=== PATIENT | male | born 1965 | race Caucasian/White ===

== ENCOUNTER 2023-08-10 15:05 | Emergency (ER) | payer SELFPAY ==
[2023-08-10 15:30] VITALS: TEMP 98.3; BMI 24.3
[2023-08-10] MEDS ORDERED: LIDOCAINE HCL 2% (20ML MULTI-DOSE VIAL) ONE (16:19)
[2023-08-10] MEDS: morphine CARPU-JECT 2 MG/1 ML DISP.SYRIN IM ONE (16:49)
[2023-08-10] MEDS: LIDOCAINE HCL 2% (50ML VIAL) SQ ONE (16:51)
[2023-08-10] MEDS ORDERED: FENTANYL CITRATE/PF 50 MCG/ML VIAL ONE (16:56)
[2023-08-10] MEDS ORDERED: PROPOFOL 20 ML ONE (17:00)
[2023-08-10] MEDS ORDERED: KETAMINE HCL 200 MG/20 ML VIAL ONE (17:00)
[2023-08-10 18:30] VITALS: RESP 16
[2023-08-10] MEDS: KETAMINE HCL 200 MG/20 ML VIAL IVPUSH ONE (18:30)
[2023-08-10] MEDS: PROPOFOL 200 MG/20 ML VIAL IVPUSH ONE (18:30)
[2023-08-10 18:57] VITALS: BP 117/90; PULSE 67
== END 2023-08-10 20:30 | disposition home or self-care (01) ==
LOC: JER 15:05
PROC: 0RSKXZZ Reposition Left Shoulder Joint, External Approach (ICD-10-PCS; principal; 2023-08-10)
PROC: 3E030GC Introduction of Other Therapeutic Substance into Peripheral Vein, Open Approach (ICD-10-PCS; 2023-08-10)
PROC: 3E030GC Introduction of Other Therapeutic Substance into Peripheral Vein, Open Approach (ICD-10-PCS; 2023-08-10)
PROC: 3E030GC Introduction of Other Therapeutic Substance into Peripheral Vein, Open Approach (ICD-10-PCS; 2023-08-10)
PROC: 3E023GC Introduction of Other Therapeutic Substance into Muscle, Percutaneous Approach (ICD-10-PCS; 2023-08-10)
DX: S43.005A Unspecified dislocation of left shoulder joint, initial encounter (principal); W01.0XXA Fall on same level from slipping, tripping and stumbling without subsequent striking against object, initial encounter
CPT/HCPCS: 73030-TC-LT-FY; 73200-TC-RT; 99284-25